=== PATIENT | female | born 1965 | race Caucasian/White ===

== ENCOUNTER → 2019-02-01 | Outpatient (CLI) | payer OTHER ==
--- NOTE | 2019-02-09 11:08 | PATH ---
[address] [address] PATHOLOGY RPT PROCEDURE Name: KARLY BUENROSTRO Room: [facility] Lore#: [id number] Admission: 02/01/19 Date of : 63 Discharge: Report #: [id number] Path Case #: [id number] [facility] Accession Number: [id number] . 01 Material submitted: . PART A: breast - RIGHT BREAST. Modifiers: right PART B: axilla - RIGHT AXILLA. Modifiers: right . 01 Clinical history: . A. 5.24 x 2.07 x 4.70 cm B. 4.03 x 1.74 x 1.98 cm . 02 Diagnosis: A. RIGHT BREAST, IMAGE GUIDED CORE BIOPSIES: - INFILTRATING DUCTAL ADENOCARCINOMA, HIGH GRADE, WITH SUGGESTION OF MICROPAPILLARY TYPE, SPANNING AT LEAST 10 MM. SEE COMMENT. . B. RIGHT AXILLA, IMAGE GUIDED CORE BIOPSY: - HIGH GRADE CARCINOMA TYPICAL OF BREAST DUCTAL PRIMARY SPANNING AT LEAST 18 MM, WITH FOCAL NECROSIS AND WITH INVASION OF FAT SUGGESTING EXTRANODAL EXTENSION. - Fragment of benign skin. - See comment. LBQ/02/03/2019 . 02 Comment: Specimen A: Specimen type: Image guided core biopsy Tumor site: Right breast Tumor quantitation: 100% of submitted tissues Histologic type: Ductal adenocarcinoma with suggestion of micropapillary type Histologic grade: High grade (III of III) Tubules, nuclei and mitoses: 3, 2, 3 LVSI: Indeterminate Microcalcifications: Not identified Markers: Breast tumor profile pending Block: A1 . No ductal carcinoma in situ or lobular carcinoma in situ is seen in specimen A. Greater than 95% of the submitted tissues from the right axilla (B) shows infiltrating high grade carcinoma and involvement of fat suggests extranodal extension although it is uncertain if this represents intranodal fat. Breast tumor profile studies are pending on A1 and will be the subject of an addendum report. [place] (acting [facility] Breast Navigator) notified at approximately 1405 on 02/03/2019. Specimens A and B reviewed with Dr. Kevin Lozano who agrees with the diagnoses. (TK/db; 02/03/2019) [place] [address] PATHOLOGY RPT PROCEDURE Name: KARLY BUENROSTRO Room: [facility] Lore#: [id number] Admission: 02/01/19 Date of : 63 Discharge: Report #: [id number] Path Case #: [id number] . 02 Addendum: . Special studies report received from [facility], [address] [place] [address], [address], [place], [address], on case [id number], labeled with their number [id number], dated 02/08/2019. . Breast/Prognostic Marker Analysis . Specimen Site: Rt Breast, Breast cancer. Specimen ID #: [id number] . ER (Estrogen Receptor) Absent/Negative Percent: 0.00 Analysis: Manual Comments: Adequate external positive control is noted. Internal positive control not seen but tissue is adequate for evaluation . NY (Progesterone Receptor) Absent/Negative Percent: 0.00 Analysis: Manual Comments: Adequate external positive control is noted. Internal positive control not seen but tissue is adequate for evaluation . HER2 Over-Expressed Score: 3+ Analysis: Manual . Ki-67 High Proliferation Percent: 25.00% Analysis: Manual . Time to Fixation (Cold Ischemic Time): 2 Minutes Duration of Fixation: 27 Hours 10 Minutes Type of Fixative: 10% Neutral Buffered Formalin . at [facility]. Sarbjit Graff MD Surgical Pathologist . . Methodology The HER2 Receptor protein expression is analyzed using the [place]ahoma HER2 rabbit monoclonal antibody (clone 4B5). This assay is used for diagnostic determination of the HER2 protein over-expression in paraffin embedded, [place] [address] PATHOLOGY RPT PROCEDURE Name: KARLY BUENROSTRO [facility] [id number] Admission: 02/01/19 Date of : 63 Discharge: Report #: [id number] Path Case #: [id number] formalin fixed breast cancer tissue on the [place]ahoma Benchmark. The specimen is processed using a polymer detection system. The membrane staining of the tumor is determined either by manual score or image analysis. This antibody is intended for in vitro diagnostic use. The score is reported as per package insert; 0, 1+, 2+, and 3+. This test is used for clinical purposes. . A rabbit monoclonal antibody (clone SP1) that recognized the Estrogen Receptor is used to perform immunohistochemistry on routinely fixed (formalin) paraffin embedded tissue on the [place]ahoma Benchmark. The specimen is processed using a polymer detection system. The percentage of stained tumor nuclei is determined either manually or by image analysis. This test is intended for in vitro diagnostic use. This test is used for clinical purposes. . A rabbit monoclonal antibody (clone 1E2) that recognized the Progesterone Receptor is used to perform immunohistochemistry on routinely fixed (formalin) paraffin embedded tissue on the [place]ahoma Benchmark. The specimen is processed using a polymer detection system. The percentage of stained tumor nuclei is determined either manually or by image analysis. This test is intended for in vitro diagnostic use. This test is used for clinical purposes. . A rabbit monoclonal antibody (clone 30-9) that recognized Ki67 is used to perform immunohistochemistry on routinely fixed (formalin) paraffin embedded tissue on the [place] Benchmark. The specimen is processed using a polymer detection system. The percentage of stained tumor nuclei is determined either manually or by image analysis. This test is intended for in vitro diagnostic use. This test is used for clinical purposes. . Intended Use: This antibody is intended for in vitro diagnostic (IVD) use. HER2 (4B5) is a rabbit monoclonal antibody intended for the semi-quantitative detection of HER2 antigen in sections of formalin-fixed, paraffin embedded normal and neoplastic tissue. . This antibody is intended for in vitro diagnostic (IVD) use. Estrogen Receptor (ER) (SP1) is a rabbit monoclonal antibody (IgG) that is intended for the qualitative detection of estrogen receptor (ER) antigen in sections of formalin-fixed, paraffin-embedded tissue. ER is a rabbit monoclonal antibody that recognizes human estrogen receptor alpha. . This antibody is intended for in vitro diagnostic (IVD) use. Progesterone Receptor (NY) (1E2) is a rabbit monoclonal antibody (IgG) that is intended for the qualitative detection of progesterone receptor (NY) antigen in sections of formalin fixed, paraffin embedded tissue. NY is a rabbit monoclonal antibody that recognizes the A and B forms of the human progesterone [place] [address] PATHOLOGY RPT PROCEDURE Name: KARLY BUENROSTRO Room: [facility]#: [id number] Admission: 02/01/19 Date of : 63 Discharge: Report #: [id number] Path Case #: [id number] This antibody is intended for in vitro diagnostic (IVD) use. Ki-67 (30-9) is a rabbit monoclonal antibody (IgG) directed against C-terminal portion of Ki-67 antigen. Staining for Ki-67 can be used to aid in assessing the proliferative activity of normal and neoplastic tissue. Ki-67 is a nuclear protein expressed in proliferating cells. During the cell cycle, the Ki-67 antigen is present in the G1, S, G2 and M phase but is absent in the G0 (quiescent phase). . . Disclaimer: This Test was performed by [employer]. at [address] [address], [place], [address]. . [facility] is a business unit of [employer]. a wholly-owned subsidiary of [employer]. . This assay has not been validated on decalcified tissues. Results should be interpreted with caution if this specimen was decalcified given the likelihood of false negativity on decalcified specimens. . Any image(s) that accompany this report is/are a credit resolution representative image(s) only and should not be used to render a diagnosis. . This interpretation is contingent on the specimen and the clinical information received. . For any special tests/stains performed, known positive cells or tissues are tested with each marker and examined to ensure positivity. Positive and negative internal controls, if present, react appropriately. . This analysis is an adjunct to the evaluation of the referring physician and does not represent a final diagnosis. . The immunohistochemistry tests performed at [facility]. were validated on tissue fixed in 10% neutral buffered formalin. The performance characteristics of the tests performed on tissue processed in other fixatives is not known. . HER2 testing at [facility] is performed in compliance with the 2018 updated ASCO/CAP Clinical Practice Guideline Focused Update. If the result is EQUIVOCAL (2+), it must be confirmed by an alternative assay such as FISH or Dual ANGELA. REF: Arpita GALEAS, JONA Stoner et al: Human Epidermal Growth Factor Receptor 2 Testing in Breast Cancer: ASCO/CAP Clinical Practice Guideline Focused Update. J Clin Oncol 36:7940-4035, 2018. . HER2 and ER/NY ASCO/CAP guidelines require fixation in neutral buffered formalin for a minimum of 6 and a maximum of 72 hours[place] [address] PATHOLOGY RPT PROCEDURE Name: KARLY BUENROSTRO Room: [facility] Torrez#: [id number] Admission: 02/01/19 Date of : 63 Discharge: Report #: [id number] Path Case #: [id number] than 6 hours may not adequately preserve cell proteins. Fixation times longer than 72 hours may cause excess cross-linking of proteins reducing the antigen available for staining. Either scenario can cause reduced staining; hence false negative results are possible and should be considered for these situations if the HER2 IHC score is less than 3+ or ER or NY is negative (no staining or <1% positive). It is recommended that specimens fixed longer than 72 hours with HER2 IHC scores less than 3+ be confirmed by HER2 FISH or Dual ANGELA. The time from biopsy/excision to fixation in formalin (cold ischemic time) must be less than 1 hour. Time to fixation (cold ischemic time) greater than 1 hour should be interpreted with caution. HER2 testing, mainly HER2 by FISH, is particularly vulnerable since excessive cold ischemic time results in preferential loss of HER2 probe signals that may lead to false negative results. . SCORE STAINING PATTERN IN TUMOR CELLS INTERPRETATION RESULTS 0 No staining observed or incomplete, faint membrane staining in less than or equal to 10% of tumor cells. Negative 1+ Incomplete, faint membrane staining in greater than 10% of tumor cells. Negative 2+ Weak to moderate complete membrane staining observed in greater than 10% of tumor cells. Equivocal* *Must be confirmed by alternative assay (IHC/FISH/Dual ANGELA) 3+ Intense, complete membrane staining in greater than 10% of tumor cells. Positive . A complete copy of the report is on file. . Professional and Technical services performed by [employer]. at [address] [place] [address]. . ([facility] 02/09/2019) . [facility]/02/09/2019 Addendum Electronically Signed by Carmine Hughes MD, Pathologist . 02 Electronically signed: . Carmine Hughes MD, Pathologist NPI- [id number] . 01 Gross description: . A. Received in formalin labeled "Karly Buenrostro, Rt breast," [address] [address] PATHOLOGY RPT PROCEDURE Name: PORTERKARLY Room: [facility]#: [id number] Admission: 02/01/19 Date of : 63 Discharge: Report #: [id number] Path Case #: [id number] multiple needle cores of yellow-sears fibrofatty tissue measuring 1.1 x 0.6 x 0.2 cm in aggregate dimensions. The specimen is submitted entirely in cassettes A1 through A3. The cold ischemic time is two minutes. The total formalin fixation time is 27 hours and 10 minutes. . B. Received in formalin labeled "Karly Buenrostro, Rt axilla," are multiple needle cores of yellow-sears fibrofatty tissue measuring 2.0 x 0.6 x 0.2 cm vo aggregate dimensions. The specimen is submitted entirely in cassettes B1 through B3. The cold ischemic time is two minutes. The total formalin fixation time is 27 hours and 10 minutes. (DAC; 02/02/2019) XDC/XDC . 02 Pathologist provided ICD-10: C50.911, C77.3, L04.2 . 02 CPT . 641034, 842924 Specimen Comment: A courtesy copy of this report has been sent to Specimen Comment: [phone], , . Specimen Comment: Report sent to ,DR OSCAR / DR YUSUF Performed at: [address], [place], [place] [id number] MD Dontae Dnagelo MD Phone: [phone] Performed at: 02 [facility] [address], [place], [place] [id number] MD Carmine Hughes MD Phone: [phone]
== END | disposition home or self-care (01) ==
LOC: M.ULTRA 14:00
DX: C50.911 Malignant neoplasm of unspecified site of right female breast (principal); C77.3 Secondary and unspecified malignant neoplasm of axilla and upper limb lymph nodes; L04.2 Acute lymphadenitis of upper limb